=== PATIENT | female | born 1975 | race Caucasian/White ===

== ENCOUNTER → 2017-01-22 | Outpatient (CLI) | payer BC ==
--- NOTE | 2017-01-22 14:54 | RAD ---
Chest radiograph 01/22/2017 2:00 AM Indication: Acute shortness of air, hypoxia Comparison: None available Technique: PA and lateral views of the chest are provided. Findings: Cardiomediastinal silhouette is borderline enlarged. No pleural effusions, pulmonary vascular congestion or pneumothorax. The lungs are clear. Osseous structures are normal. Impression: Borderline enlarged cardio mediastinal silhouette. No acute cardiopulmonary process.
== END | disposition home or self-care (01) ==
LOC: DXRADRC 14:21
PROVIDERS: ATTEND Internal Medicine
DX: R09.02 Hypoxemia (principal); R06.02 Shortness of breath
CPT/HCPCS: 71020

== ENCOUNTER 2017-09-23 18:27 | Emergency (ER) | payer SELFPAY ==
[~2017-09-23] VITALS: Ht 157.5 cm; Wt 165.6 kg
[2017-09-23] MEDS ORDERED: KETOROLAC 60 MG/2 ML VIAL. IM ONE (18:45)
[2017-09-23] MEDS: IOHEXOL 300 MG/ML 75 ML VIAL. IV ONE (18:45)
[2017-09-23] MEDS: IOHEXOL 300 MG/ML 50 ML VIAL. IV ONE (18:54)
--- NOTE | 2017-09-23 19:03 | PHYS DOC ---
Past History Past Medical History: Anxiety, Endometriosis, Fibromyalgia Additional Past Medical Histor: interstitial cystitis, hyperdysplasia of the uterus, PCOS Past Medical History Chronic abdominal pain Adult General Chief Complaint Chief Complaint: ABDOMINAL PAIN HPI HPI 41-year-old female with a history of morbid obesity and multiple etiologies for her chronic abdominal pain. Patient suffers from anxiety. She also has fibromyalgia, interstitial cystitis, endometriosis and hyper dysplasia of her uterus as well as polycystic ovarian syndrome. Patient now complains of an attack of her chronic abdominal pain similar to what she has experienced previously. Onset was 2 nights ago. Patient has nausea but no vomiting. No constipation or diarrhea. No black or bloody stool. Lower abdomen is worse but patient states it hurts all over the remainder of her abdomen as well. She denies flank pain. No chest pain or shortness of breath. No fevers chills sweats or shaking chills. Normal bowel and bladder habits. Review of Systems Review of Systems Constitutional: Denies fever or chills [] Eyes: Denies change in visual acuity, redness, or eye pain [] HENT: Denies nasal congestion or sore throat [] Respiratory: Denies cough or shortness of breath [] Cardiovascular: No additional information not addressed in HPI [] GI: Denies abdominal pain, nausea, vomiting, bloody stools or diarrhea [] : Denies dysuria or hematuria [] Musculoskeletal: Denies back pain or joint pain [] Integument: Denies rash or skin lesions [] Neurologic: Denies headache, focal weakness or sensory changes [] Endocrine: Denies polyuria or polydipsia [] All other systems were reviewed and found to be within normal limits, except as documented in this note. Current Medications Current Medications Current Medications Medications (Trade) Dose Ordered Sig/Torsten Start Time Stop Time Status Last Admin Dose Admin Iohexol (Omnipaque 300 Mg/ml) 100 ml 1X ONCE 09/23/17 19:00 09/23/17 19:01 Ketorolac Tromethamine (Toradol) 60 mg 1X ONCE 09/23/17 18:45 09/23/17 18:46 DC Sodium Chloride 1,000 ml @ 1,000 mls/hr Q1H 09/23/17 18:45 Allergies Allergies Allergies Coded Allergies Type Severity Reaction Last Updated Verified No Known Drug Allergies 09/23/17 No Physical Exam Physical Exam Anxious appearing 41-year-old morbidly obese female in no acute distress. She has a very dramatic response to being touched anywhere on exam, which she describes as typical for her fibromyalgia. Constitutional: Well developed, well nourished, anxious appearing ,non-toxic appearance. [] HENT: Normocephalic, atraumatic, bilateral external ears normal, oropharynx moist, no oral exudates, nose normal. [] Eyes: PERRLA, EOMI, conjunctiva normal, no discharge. [] Neck: Normal range of motion, no tenderness, supple, no stridor. [] Cardiovascular:Heart rate regular rhythm, no murmur [] Lungs & Thorax: Bilateral breath sounds clear to auscultation [] Abdomen: Bowel sounds normal, soft, diffuse tenderness without guarding or rebound. No mass or megaly appreciated, no pulsatile masses. [] Skin: Warm, dry, no erythema, no rash. [] Back: No tenderness, no CVA tenderness. [] Extremities: No tenderness, no cyanosis, no clubbing, ROM intact, no edema. [] Neurologic: Alert and oriented X 3, normal motor function, normal sensory function, no focal deficits noted. [] Psychologic: Patient with very anxious affect, judgement normal, mood normal. [] EKG EKG [] Radiology/Procedures Radiology/Procedures [] Course & Med Decision Making Course & Med Decision Making Pertinent Labs and Imaging studies reviewed. (See chart for details) Signs and symptoms consistent abdominal/pelvic pain. she has several chronic etiologies for pelvic pain.. She is hemodynamically stable and has no clinical evidence of acute abdomen. Full workup pending including labs and CT. Anxiolytic and anti-inflammatory medications will be administered IV. CT shows a tubular cystic mass right adnexa and recommends ultrasound for evaluation. Patient continues to be tachycardic. Blood pressure stable. Ultrasound confirms this diagnosis with suspicion of possible pyosalpinx. Patient hasn't elevated white blood cell count and with tachycardia this is consistent with Sirs and potential sepsis. Appropriate IV fluid bolus administered. Blood cultures drawn and antibiotic coverage initiated. Case discussed with Dr. Bowie [employer] doctor at [facility]. She is aware the history and findings accepts the patient for inpatient omission her service and she specifically requests coverage with 900 mg of clindamycin IV. Patient stable for transfer Dr. Lepe was listed as the patient's primary care doctor however the patient clarifies that her actual primary care physician is Jose Carlos Hoover. Dragon Disclaimer Dragon Disclaimer This electronic medical record was generated, in whole or in part, using a voice recognition dictation system. Departure Departure: Impression: Primary Impression: Nausea Additional Impressions: Anxiety Mass of uterine adnexa SIRS (systemic inflammatory response syndrome) Leukocytosis Disposition: XFER [facility] Condition: STABLE Referrals: JOSE ANTONIO BEEBE MD (PCP) Problem Qualifiers DELROY ARGUETA MD Sep 23, 2017 19:02
[2017-09-23 19:06] LABS: BASO # 0.1 x10^3/uL (0.0-0.2); BASO % 1 % (0-3); EOS # 0.1 x10^3/uL (0.0-0.7); EOS % 1 % (0-3); HEMATOCRIT 39.2 % (36.0-47.0); HEMOGLOBIN 13.4 g/dL (12.0-15.5); LYMPH # 1.5 x10^3/uL (1.0-4.8); LYMPH % 10 % (24-48); MEAN CORPUSCULAR HEMOGLOBIN 30 pg (25-35); MEAN CORPUSCULAR HGB CONC 34 g/dL (31-37); MEAN CORPUSCULAR VOLUME 87 fL (79-100); MONO # 1.1 x10^3/uL (0.0-1.1); MONO % 8 % (0-9); NEUT # 11.6 x10^3uL (1.8-7.7); NEUT % 81 % (31-73); PLATELET COUNT 245 x10^3/uL (140-400); RED CELL DISTRIBUTION WIDTH 14.2 % (11.5-14.5); WHITE BLOOD COUNT 14.4 x10^3/uL (4.0-11.0)
[2017-09-23 19:19] LABS: ALBUMIN 2.9 g/dL (3.4-5.0); ALBUMIN/GLOBULIN RATIO 0.6 (1.0-1.7); CALCIUM 8.9 mg/dL (8.5-10.1); CREATININE 0.7 mg/dL (0.6-1.0); GFR 91.8; POTASSIUM 3.5 mmol/L (3.5-5.1); TOTAL BILIRUBIN 0.6 mg/dL (0.2-1.0); TOTAL PROTEIN 7.6 g/dL (6.4-8.2)
[2017-09-23] MEDS: IV NORMAL SALINE 1,000ML 1,000 ML IV SCH (19:20)
--- NOTE | 2017-09-23 19:24 | RAD ---
PQRS Compliance Statement: One or more of the following individualized dose reduction techniques were utilized for this examination: 1. Automated exposure control 2. Adjustment of the mA and/or kV according to patient size 3. Use of iterative reconstruction technique CT ABD PELV W/ IV CONTRST ONLY Clinical Indication: RLQ PAIN TIMES 2 DAYS Comparison: None. Technique: Helical CT imaging of the abdomen and pelvis is performed after 100 cc Omnipaque 300 IV contrast. Oral contrast not given. Findings: There is moderate atelectasis or scarring in the bilateral lung bases. Cardiac size normal. The liver, gallbladder, spleen, pancreas, adrenal glands, abdominal aorta, and kidneys are normal. The stomach is unremarkable. No small bowel obstruction is seen. The appendix is normal. There is inflammation in the right adnexa with a tubular cystic area extending to the right lower quadrant. The length is approximately 10 cm. The sigmoid colon is just medial to this process but the epicenter of the inflammation is centered in the adnexa. The urinary bladder is normal. There is a probable exophytic fibroid of the anterior uterus superior to the bladder. Left adnexa unremarkable. No pelvic free fluid is identified. No acute bone abnormality. IMPRESSION: 1. There is inflammation of the right adnexa. There is a right adnexal cyst and a dilated tubular cystic structure. Correlate for pelvic inflammatory disease/tubo-ovarian abscess. Suggest further evaluation with pelvic ultrasound. 2. Moderate atelectasis or scarring in the bilateral lung bases. 3. The appendix is normal. 4. Probable exophytic fibroid of the anterior uterus. Electronically signed by: Ben Adame MD (09/23/2017 7:21 PM) [facility]
[2017-09-23] MEDS: KETOROLAC 30 MG/ML VIAL. IV ONE (19:30)
[2017-09-23] MEDS: LORazepam 2 MG/ML VIAL IV ONE (19:31)
[2017-09-23 21:08] LABS: BILIRUBIN,URINE NEG (NEG); CLARITY,URINE CLOUDY; COLOR,URINE AMBER; GLUCOSE,URINE NEG (NEG); NITRITE,URINE POS (NEG); UROBILINOGEN,URINE 1 mg/dL (0.2 mg/dL)
[2017-09-23 21:09] LABS: BACTERIA,URINE MOD /HPF (0-FEW); RBC,URINE >40 /HPF (0-2); SQUAMOUS EPITHELIAL CELL,UR MANY /LPF
--- NOTE | 2017-09-23 21:38 | RAD ---
TRANSVAGINAL Clinical Indication: severe pelvic pain x 1 day, wbc 14.4. lmp 09/23/17, Comparison: CT abdomen and pelvis with contrast September 23, 2017. TECHNIQUE: Real-time ultrasound imaging of the pelvis using transabdominal and transvaginal window is performed. Findings: Patient was in pain during the exam and requested the exam be terminated prior to completion. Normal low resistance arterial flow is seen in the right ovary. Fallopian tube and ovarian complex measures 10 x 5 x 4.5 cm. There is dilated cystic structure adjacent to the ovary, presumably the fallopian tube that is filled with debris or blood or pus. Limited images of the uterus demonstrate tiny nabothian cysts. Uterus is anteverted. Length is 9.7 cm. AP diameter 4.3 cm. Left ovary is not imaged. Endometrial stripe not adequately imaged. IMPRESSION: 1. The exam is incomplete due to patient pain. 2. There is normal blood flow in the right ovary. 3. There is a dilated tubular structure adjacent to the right ovary that contains internal echoes. Finding may be pyosalpinx. Electronically signed by: Ben Adame MD (09/23/2017 9:34 PM) [facility]
[2017-09-23] MEDS: IV NORMAL SALINE 1,000ML 1,000 ML IV ONE ×2 (22:00→22:40)
[2017-09-23 22:29] LABS: U PREG PATIENT NEGATIVE (NEG)
[2017-09-23] MEDS: CLINDAMYCIN 900MG PREMIX 50 ML IV SCH (22:30)
[2017-09-23] MEDS: ACETAMINOPHEN 500 MG TABLET PO ONE (23:07)
[2017-09-24 00:15] VITALS: BP 113/60
== END 2017-09-24 00:18 | disposition short-term general hospital (02) ==
LOC: ER 18:27
DX: R65.10 Systemic inflammatory response syndrome (SIRS) of non-infectious origin without acute organ dysfunction (principal); D72.829 Elevated white blood cell count, unspecified; N85.8 Other specified noninflammatory disorders of uterus; F41.9 Anxiety disorder, unspecified; M79.7 Fibromyalgia; G89.29 Other chronic pain; E28.2 Polycystic ovarian syndrome; E66.01 Morbid (severe) obesity due to excess calories; Z68.44 Body mass index [BMI] 60.0-69.9, adult
CPT/HCPCS: 36415; 74177; 76830; 80053; 81001; 81025; 83605; 83690; 85025; 87040; 96361; 96365; 96375; 99285; J1885; J2060; J3490; Q9967; J7030